=== PATIENT | female | born 1980 | race Caucasian/White ===

== ENCOUNTER 2020-06-28 10:16 | Day surgery (SDC) | payer OTHER, SELFPAY ==
--- NOTE | 2020-06-28 | POC_PTH ---
PATIENT: BRONWYN ESPINOZA LOC: [facility] – [place], [place] U#:[id number] AGE/SX: 39/F ROOM: RE06/28/[address]: Dr. Saulo Robertson MD : 1980 BED: DIS: 06/28/2020 SPEC #: [id number] RECD: 06/28/20 15:16 STATUS: ARIK FIDEL #: [id number] JADE: 06/28/20 00:[address]: Saulo Robertson DEPT: SURGICAL PATHOLOGY RECD BY: Craig Loyd Tissues: Product of conception, NOS Procedures: Surgery Specimen Level IV HEADER OPERATION: Suction dilation and curettage PRE-OP DIAGNOSIS: Missed TISSUE SUBMITTED: Products of conception MICROSCOPIC DIAGNOSIS Endometrium, curettage: Chorionic villi, decidualized stroma and trophoblastic cells consistent with products of conception. AM:esperanza 07/02/2020 MICROSCOPIC DESCRIPTION Slides are reviewed. GROSS DESCRIPTION Received in fixative is one container labeled with the patient's name and designated products of conception. The specimen consists of multiple irregular fragments of zavala soft tissue that in aggregate measure 9 x 7 x 1.5 cm. No parts are grossly recognized. 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 / AM:esperanza 07/01/20 TC:5 CPT: 58618
[2020-06-28 10:45] VITALS: BP 107/72; PULSE 68; RESP 16; TEMP 36.7; O2SAT 99; BMI 38.3
[2020-06-28] MEDS: Lactated Ringers 1,000 ML 100 ML IV (11:00)
--- NOTE | 2020-06-28 12:03 | HP.PCM_ITS ---
History and Physical Surgical History and Physical Age: 39 Date of : 1980 Lynette Wall, a 39 year old female 0 0 0 0 0, presents for Suction dilation and curettage on June 28, 2020 at 12:00. -- Luiz arrives for second opinion in office on missed , elects for suction dilation and curettage. She relates no bleeding or nausea at this time. MEDICATIONS HISTORY: Current medications prescribed by our practice are: 1. + DHA 28 mg iron- 975 mcg-200 mg combo pack, daily Patient is also takin. Maxalt 10 mg tablet, prn 2. propranolol ER 120 mg capsule,24 hr,extended release, daily ALLERGIES: No Known Drug Allergies Infections - Chicken pox Illnesses - Migraines Accidents - no injuries of consequence Hospitalizations - see surgery Review of Systems: GENERAL - Denies fever, or chills SKIN - Denies skin changes EYES - Denies visual changes EARS - Denies difficulty hearing NOSE - Denies nasal congestion or bleeding MOUTH - Denies sore throat or difficulty swallowing NECK - Denies pain or swelling RESPIRATORY - Denies shortness of breath or wheezing CARDIOVASCULAR - Denies palpitations or chest pain GASTROINTESTINAL - Denies nausea, vomiting, diarrhea, constipation GENITOURINARY - Denies dysuria, frequency of urination, incontinence of urine MUSCULOSKELETAL - Denies joint or muscle pain NEUROLOGICAL - Denies localized numbness or weakness PSYCHIATRIC - Denies depression or anxiety ENDOCRINE - Denies heat or cold intolerance, weight loss or gain HEMATO-IMMUNOLOGIC - Denies excesive bleeding with cuts SOCIAL HISTORY: Alcohol Use - socially Smoking - denies smoking Diet - no special diet Lifestyle - low stress lifestyle and Exercise - none Employer - [employer] 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 Tonsils, ? ; - 2. Bunionectomy, hammer toe, 2006 ; - PHYSICAL EXAM BP- 100/68 Sitting, Right arm, regular cuff Weight- 211.03286 lbs Height- 62.75 inch BMI:37.75 CONSTITUTIONAL - NAD, well nourished, and well developed SKIN - No rash, lesions, or ulcers HEENT - Normocephalic, PERRLA, EOMI NECK - No nodes, no nuchal rigidity and thyroid normal size and texture LYMPH NODES - Palpation of lymph nodes in neck and groins within normal limits ABDOMEN - Without hepatosplenomegaly, distention, masses, rebound, or guarding; normal bowel sounds; no hernias EXTREMITIES - No edema or calf tenderness NEUROLOGICAL - Cranial nerves II-XII grossly intact PSYCHIATRIC - A and O to time, place, person, mood and affect ASSESSMENT/PLAN: 1. Missed Pt for second opinion for [facility] with SAB. Pt with home pos UPT 05/17/20, 05/28/20 U/s at [facility] 6wk/1d no FHT, repeat u/s 06/07/20 same findings and dx with SAB. Pt elected for Expectant management with OB Pt recent called by OB doc and stated needed to have medical or surgical tx based on infection risk. U/s at this office with retroverted uterus, GS 30mm CRL 3mm no FHT. Based on hx Dx of SAB. Educated on Expectant management vs Medical vs Surgical. Educated on 8wk expectant management, can wait until this time with low risk. Also educated on risks with medical and surgical options. Pt does want future fertility, with age concerned. Educated on fertility with each procedure Pt elects for suction dilation and curettage. R/b/a discussed, pt states understand and wishes to proceed. All questions were answered and consent was signed.
[2020-06-28 13:04] VITALS: BP 107/72; BP 89/55; PULSE 56; RESP 14; TEMP 36.7; O2SAT 94
--- NOTE | 2020-06-28 13:04 | OP.PCM_ITS ---
Report of Operation Date of Procedure: 06/28/20 Pre-Operative Diagnosis: Missed Post-Operative Diagnosis: Missed Surgery/Procedure Performed:: Ultrasound-guided suction dilation curettage Description of Surgical Findings:: Surgeon: Saulo Robertson MD Anesthesia: MAC EBL: 25 cc Urine output: 250 cc IV fluids: 500 cc Complications: None Specimen: Products of conception Findings: Moderate amount of products of conception. Post procedure ultrasound with thin endometrial stripe. Good hemostasis Consent: Patient with missed elected for suction dilation and curettage. Patient understands the risk of the procedure include but are not limited to visceral vascular injury, prolonged hospitalization, blood loss and need for transfusion, reoperation. Patient educated on various options, declines options. Patient educated on genetic screening of products, risk benefits alternatives, patient declines genetic screening of products of conception. Patient stated understanding wished proceed. All questions were answered consent was signed. Procedure: Patient was brought back to the OR where MAC anesthesia was found be adequate. 200 mg of doxycycline IV were given for infection prophylaxis. Patient prepared and draped in a dorsolithotomy position with yellowfin stirrups. A weighted speculum is placed in the posterior aspect of the vagina. Cervical dilators were used to dilate cervix. 7 mm curved suction curette was used. Suction curette was used under direct visualization. Post procedure ultrasound with above findings. Good hemostasis noted. All counts correct x2. Patient tolerated procedure well was brought to recovery in stable condition. 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
--- NOTE | 2020-06-28 13:08 | DCINST_ITS ---
Discharge Diet: No Restrictions Discharge Activity: Return to Normal Activity, May Drive, May Shower May resume sexual activity in: 4-6 weeks Weight Bearing Status: Weight bearing as tolerated Call your doctor if your incision/area has: Continuous Slow Oozing, Foul Smelling Discharge Call your doctor if you observe: Fever of 101 or Higher, Shortness of breath, Chest pain Allergies/Adverse Reactions: Allergies No Known Allergies Allergy (Verified 06/25/20 10:07) Medications to take at Discharge Ascorbic Acid [Vitamin C] 500 mg PO DAILY 06/25/20 Vits [Prenatabs FA] 1 tab PO DAILY 06/25/20 Propranolol HCl [Propranolol HCl ER] 120 mg PO DAILY 06/25/20 Rizatriptan Benzoate [Rizatriptan] 10 mg PO PRN PRN 06/25/20 Primary Care Physician: CHRISTINE OCHOA [Other] Test Results: Test results from this visit will be discussed in further detail at your follow- up appointment, if applicable. Please Follow Up With: Saulo Robertson MD When: 2 weeks
[2020-06-28 13:09] VITALS: BP 107/72; BP 94/55; PULSE 55; RESP 14; O2SAT 98
[2020-06-28 13:12] VITALS: BP 107/72; BP 93/53; PULSE 55; RESP 14; O2SAT 99
[2020-06-28 13:24] VITALS: BP 103/88; BP 107/72; PULSE 59; RESP 16; TEMP 36.3; O2SAT 100
[2020-06-28 14:55] VITALS: BP 107/72; BP 111/51; PULSE 76; RESP 16; TEMP 36.6; O2SAT 98
== END 2020-06-28 15:15 | disposition home or self-care (01) ==
LOC: SDC 10:19 → AC 10:20
PROVIDERS: Referring Provider Obstetrics & Gynecology; Visit Provider Obstetrics & Gynecology
PROC: (CPT 59820; principal; 2020-06-28 11:50)
DX: O02.1 Missed abortion (principal); Z20.822 Contact with and (suspected) exposure to COVID-19
CPT/HCPCS: 59820; 86850; 86900; 86901; 87426; 88305; C9803; J7120; J2405

== ENCOUNTER 2021-05-01 16:12 | Outpatient (CLI) | payer OTHER, SELFPAY ==
[2021-05-01 16:49] LABS: Absolute Lymphocyte Count 2.64 X10^3/uL (0.83-4.51); Absolute Neutrophil Count 5.7 X10^3/uL (2.0-7.7); Basophil# 0.03 X10^3/uL; Basophil% 0.3 % (0-1); Eosinophil# 0.08 X10^3/uL; Eosinophils% 0.8 % (0-5); Hematocrit 37.5 % (37-47); Hemoglobin 12.9 g/dL (12.0-15.0); Lymphocyte # 2.64 X10^3/ul (0.83-4.51); Lymphocyte % 27.7 % (19-41); Mean Corp Hgb Conc 34.4 g/dL (32-36); Mean Corpuscular Hgb 31.6 pg (27.0-32.0); Mean Corpuscular Volume 91.9 fL (81-99); Mean Platelet Vol. 10.3 fl (6.2-12.0); Monocyte# 1.03 X10^3/uL; Monocyte% 10.8 % (0-10); NRBC Flagged by Analyzer 0 % (0-5); Neutrophil # 5.71 X10^3/uL (2.7-7.7); Neutrophil % 60.1 % (47-70); Platelet Count 297 K/mm3 (150-450); RBC Distribution Width CV 12.4 % (11.6-14.6); RBC Distribution Width SD 41.9 fl (35.1-43.9); Red Blood Count 4.08 M/mm3 (4.2-5.4); White Blood Count 9.5 K/mm3 (4.4-11.0)
[2021-05-02 09:43] LABS: HIV - WCH Non-Reactive (Nonreactive); Hepatitis B Surface Antigen Non-Reactive (Nonreactive); Hepatitis C Antibody Non-Reactive (Nonreactive); Rubella IgG Reactive (Nonreactive); Syphilis Antibodies Non-reactive
[2021-05-05 15:07] LABS: Chlamydia By Nucleic Acid AMP Negative (Negative)
[2021-05-05 16:08] LABS: Gonococcus By Nucleic Acid AMP Negative (Negative)
[2021-05-07 18:11] LABS: HPV APTIMA, High Risk Negative (Negative)
== END 2021-05-01 23:59 | disposition short-term general hospital (02) ==
LOC: WOBLAB 16:13
PROVIDERS: Visit Provider Obstetrics & Gynecology
DX: Z34.81 Encounter for supervision of other normal pregnancy, first trimester (principal); Z12.4 Encounter for screening for malignant neoplasm of cervix
CPT/HCPCS: 36415; 85025; 86703; 86762; 86780; 86803; 87086; 87088; 87340; 87491; 87591; 87624; 88175; G0145

== ENCOUNTER 2021-05-16 15:07 | Outpatient (CLI) | payer OTHER, SELFPAY | END 2021-05-16 23:59 | disposition short-term general hospital (02) | LOC: WOBLAB 15:09 | PROVIDERS: Visit Provider Obstetrics & Gynecology | DX: Z34.81 Encounter for supervision of other normal pregnancy, first trimester (principal) | CPT/HCPCS: 36415 ==

== ENCOUNTER → 2021-08-26 | Outpatient (CLI) | payer OTHER, SELFPAY ==
[2021-08-26 14:59] LABS: Hematocrit 33.8 % (37-47); Hemoglobin 11.5 g/dL (12.0-15.0); Mean Corpuscular Hgb 31.9 pg (27.0-32.0); Mean Corpuscular Volume 93.9 fL (81-99); Platelet Count 249 K/mm3 (150-450); RBC Distribution Width CV 13.3 % (11.6-14.6); RBC Distribution Width SD 45.6 fl (35.1-43.9); White Blood Count 10.3 K/mm3 (4.4-11.0)
[2021-08-26 15:09] LABS: Glucose Challenge Gest 1H 50g 148 mg/dL (70-140)
== END | disposition home or self-care (01) ==
PROVIDERS: Visit Provider Obstetrics & Gynecology
DX: Z34.82 Encounter for supervision of other normal pregnancy, second trimester (principal)
CPT/HCPCS: 36415; 82950; 85027

== ENCOUNTER → 2021-08-29 | Outpatient (CLI) | payer OTHER, SELFPAY ==
[2021-08-29 10:00] LABS: Glucose GTT-Gestation. Fasting 93 mg/dL (<105)
[2021-08-29 11:04] LABS: Glucose GTT-Gestational 1 Hr 206 mg/dL (<190)
[2021-08-29 12:48] LABS: Glucose GTT-Gestational 2 Hr 208 mg/dL (<165)
[2021-08-29 12:49] LABS: Glucose GTT-Gestational 3 Hr 90 L (<145)
== END | disposition home or self-care (01) ==
LOC: WOBLAB 08:48
PROVIDERS: Visit Provider Obstetrics & Gynecology
DX: O24.912 Unspecified diabetes mellitus in pregnancy, second trimester (principal); Z3A.00 Weeks of gestation of pregnancy not specified
CPT/HCPCS: 36415; 82951; 82952

== ENCOUNTER → 2021-10-21 | Outpatient (CLI) | payer OTHER, SELFPAY ==
[2021-10-21 18:20] LABS: ALB/GLOB Ratio 0.8 RATIO (0.9-2.4); AST(SGOT) 16 U/L (15-37); Alanine Aminotransfer ALT/SGPT 20 U/L (13-56); Albumin, Serum 2.7 g/dL (3.2-5.0); Alkaline Phosphatase 100 U/L (45-117); Anion Gap 9 (5-15); BUN 13 mg/dL (7-18); BUN/Creat Ratio 25.3 RATIO (10-20); Calcium,Total 9.6 mg/dL (8.5-10.1); Chloride 109 mmol/L (98-107); Creatinine, Serum 0.51 mg/dL (0.55-1.02); EST Glomerular Filtration Rate 140 mL/min (>60); Est Glom Filt Rate - Afr Amer 170 mL/min (>60); Globulin 3.4 g/dL (2.2-4.2); Glucose 93 mg/dL (74-106); Potassium 3.8 mmol/L (3.5-5.1); Protein, Total 6.1 g/dL (6.4-8.2); Sodium Level 139 mmol/L (136-145)
== END | disposition home or self-care (01) ==
PROVIDERS: Visit Provider Obstetrics & Gynecology
DX: Z34.83 Encounter for supervision of other normal pregnancy, third trimester (principal)
CPT/HCPCS: 36415; 80053

== ENCOUNTER 2021-11-04 14:15 | Outpatient (CLI) | payer OTHER, SELFPAY ==
[2021-11-04 14:33] VITALS: BMI 41.8
[2021-11-04 14:59] VITALS: PULSE 69; TEMP 36.3; O2SAT 96
[2021-11-04 15:01] VITALS: BP 111/62; PULSE 68
--- NOTE | 2021-11-05 08:33 | OB.TRI.NOTE ---
HPI - General General Date of Admission: 11/04/21 Date of Service: 11/04/21 Chief Complaint: decreased movement HPI Narrative BRONWYN ESPINOZA, is a 40 F G1 who presents at 35 weeks with c/o decreased movement. PFSH PFSH Home Medications ascorbic acid (vitamin C) 500 mg capsule,extended release 500 mg PO DAILY 06/25/20 [History Last Taken 11/03/21 17:00] vits,calcium no.78-iron fumarate-folic acid 29 mg-1 mg tablet 1 tab PO DAILY 06/25/20 [History Last Taken 11/04/21 11:00] propranolol 120 mg capsule,24 hr,extended release 120 mg PO DAILY migraines 06/25/20 [History Last Taken 11/04/21 11:00] aspirin 81 mg capsule 81 mg PO DAILY covid in 11/04/21 [History Last Taken 11/04/21 11:00] cholecalciferol (vitamin D3) 50 mcg (2,000 unit) capsule (Vitamin D3) 50 mcg PO DAILY 11/04/21 [History Last Taken 11/04/21 11:00] zinc 50 mg capsule 50 mg PO DAILY 11/04/21 [History Last Taken 11/04/21 11:00] Allergy/AdvReac Type Severity Reaction Status Date / Time No Known Allergies Allergy Verified 11/04/21 14:49 Social History Smoking Status: Never smoker NST FHR Rate Baby A Baseline: 130 Variability:: Moderate Accelerations:: 15 x 15 Decelerations:: None NST Reactive:: Yes FHR Category:: Category I Uterine Activity:: 0/10 Assessment & Plan (1) 35 weeks gestation of : (2) Decreased movement: PLAN: NST reactive, Cat I dc home
== END 2021-11-04 15:50 | disposition home or self-care (01) ==
LOC: WPOUT 14:21 → WP 14:21
PROVIDERS: Referring Provider Obstetrics & Gynecology; Visit Provider Obstetrics & Gynecology
DX: O36.8130 Decreased fetal movements, third trimester, not applicable or unspecified (principal); Z79.82 Long term (current) use of aspirin; Z3A.35 35 weeks gestation of pregnancy
CPT/HCPCS: 59025; 59050; 99218; G0378

== ENCOUNTER → 2021-11-11 | Outpatient (CLI) | payer OTHER, SELFPAY | END | disposition home or self-care (01) | LOC: LABSPEC 11-13 13:05 | PROVIDERS: Visit Provider Obstetrics & Gynecology | DX: Z36.85 Encounter for antenatal screening for Streptococcus B (principal) | CPT/HCPCS: 87081 ==

== ENCOUNTER 2021-11-20 19:05 | Inpatient (IN) | payer OTHER, SELFPAY ==
[2021-11-20 19:40] VITALS: TEMP 36.4
[2021-11-20] MEDS: Lactated Ringers 1,000 ML 50 ML IV (19:48)
[2021-11-20 19:50] VITALS: BMI 42.2
[2021-11-20 19:58] VITALS: PULSE 75; O2SAT 97
[2021-11-20 19:59] VITALS: BP 116/58; PULSE 75
[2021-11-20 20:04] LABS: Absolute Lymphocyte Count 1.91 X10^3/uL (0.83-4.51); Absolute Neutrophil Count 6.1 X10^3/uL (2.0-7.7); Basophil# 0.01 X10^3/uL; Basophil% 0.1 % (0-1); Eosinophil# 0.04 X10^3/uL; Eosinophils% 0.4 % (0-5); Hematocrit 33.8 % (37-47); Hemoglobin 11.4 g/dL (12.0-15.0); Lymphocyte # 1.91 X10^3/ul (0.83-4.51); Lymphocyte % 21.3 % (19-41); Mean Corp Hgb Conc 33.7 g/dL (32-36); Mean Corpuscular Hgb 32.3 pg (27.0-32.0); Mean Corpuscular Volume 95.8 fL (81-99); Mean Platelet Vol. 11.8 fl (6.2-12.0); Monocyte# 0.86 X10^3/uL; Monocyte% 9.6 % (0-10); NRBC Flagged by Analyzer 0 % (0-5); Neutrophil # 6.11 X10^3/uL (2.7-7.7); Neutrophil % 68.2 % (47-70); Platelet Count 208 K/mm3 (150-450); RBC Distribution Width CV 13.6 % (11.6-14.6); RBC Distribution Width SD 46.9 fl (35.1-43.9); Red Blood Count 3.53 M/mm3 (4.2-5.4)
--- NOTE | 2021-11-20 20:26 | PCM.HP.BLA ---
History and Physical Date of Admission: 11/20/21 Chief complaint: Induction of labor cholestasis History present illness: 41-year-old G2, P0 at 37 weeks and 2 days with ROXY 12/09/2021 arrives for induction of labor cholestasis. Denies headache, vision change, chest pain, shortness of breath, nausea vomit, right upper quadrant pain. Patient states good movement. is complicated by AMA (NIPT within normal limits), cholestasis, GDM A1 Obstetric history: G1: SAB G2: Current Past medical history: GDM A1, cholestasis, migraines Medications: ASA, vitamin, propranolol, ursodiol Past surgical history: Allergies: No known drug allergies Family history: Denies history DVT or PE Social history: Denies smoking, alcohol use, drug use Review of systems: Besides above pertinent positives a full review of systems was performed and found to be negative Physical exam: Blood pressures 116/58 pulse 75 General: Normal-appearing no acute distress none HEENT: Normocephalic/atraumatic no cervical of adenopathy Cardiac/respiratory: No successor muscles, nonlabored breathing Abdomen: Soft, nontender, gravid Extremities: No peripheral edema normal peripheral pulses Psych: Normal affect normal demeanor nonpressured speech Labs: White blood cell count 9.0 hemoglobin 11.4 hematocrit 33.8 platelets 208 Assessment plan: 41-year-old G2, P0 at 37 weeks and 2 days for induction of labor with cholestasis Admit labor and delivery CEFM GBS negative Cytotec induction GDM A1: We will continue to monitor blood sugars and treat appropriately Anesthesia see
[2021-11-20 20:31] LABS: Bedside Glucose 98 mg/dL (74-106)
[2021-11-20] MEDS: miSOPROStol 25 MCG TABLET VAGINAL (20:35)
[2021-11-20 20:48] LABS: ALB/GLOB Ratio 0.8 RATIO (0.9-2.4); AST(SGOT) 19 U/L (15-37); Alanine Aminotransfer ALT/SGPT 19 U/L (13-56); Albumin, Serum 2.7 g/dL (3.2-5.0); Alkaline Phosphatase 120 U/L (45-117); Anion Gap 8 (5-15); BUN 12 mg/dL (7-18); BUN/Creat Ratio 17.2 RATIO (10-20); Chloride 108 mmol/L (98-107); EST Glomerular Filtration Rate 99 mL/min (>60); Est Glom Filt Rate - Afr Amer 119 mL/min (>60); Estimated Creatinine Clearance 87.49 ml/min; Globulin 3.4 g/dL (2.2-4.2); Glucose 93 mg/dL (74-106); Potassium 3.7 mmol/L (3.5-5.1); Protein, Total 6.1 g/dL (6.4-8.2); Sodium Level 138 mmol/L (136-145)
[2021-11-20 21:56] LABS: Bedside Glucose 101 mg/dL (74-106)
[2021-11-20] MEDS: Acetaminophen 500 MG Tablet PO (22:39)
[2021-11-20 22:46] VITALS: TEMP 36.3; O2SAT 98
[2021-11-20 22:47] VITALS: BP 117/57; PULSE 60
[2021-11-20 23:44] VITALS: PULSE 61; O2SAT 98
[2021-11-21] VITALS (41 sets, daily range): BP systolic 109–168; BP diastolic 57–76; PULSE 47–104; RESP 16; TEMP 36.3–37.2; O2SAT 95–100
[2021-11-21] MEDS: miSOPROStol 25 MCG TABLET VAGINAL ×3 (00:51→13:53)
[2021-11-21 01:25] LABS: Bedside Glucose 67 mg/dL (74-106)
[2021-11-21] MEDS: Acetaminophen 500 MG Tablet PO ×2 (05:18→23:34)
[2021-11-21] MEDS: LACTATED RINGERS 500 ML 999 ML IV ×3 (05:24→20:37)
[2021-11-21 06:06] LABS: Bedside Glucose 73 mg/dL (74-106)
--- NOTE | 2021-11-21 07:11 | PN.OBGYN_ITS ---
Subjective Subjective No overnight complaints Objective Data Objective Data Vital Signs: Vital Signs Temp Pulse BP Pulse Ox 99.0 F 60 138/67 H 98 11/21/21 05:05 11/21/21 05:05 11/21/21 05:04 11/21/21 05:05 Weight: 238 lb 3.2 oz Body Mass Index (BMI) 42.2 Intake & Output: Intake and Output for Last 24 Hours 11/19/21 11/20/21 11/21/21 23:59 23:59 23:59 Intake Total 980 / 980 Balance 980 / 980 Lab / Micro Data Result Diagrams: 11/20/21 19:45 11/20/21 19:45 Labs: Laboratory Results - last 24 hr 11/20/21 19:45: WBC 9.0, RBC 3.53 L, Hgb 11.4 L, Hct 33.8 L, MCV 95.8, MCH 32.3 H, MCHC 33.7, RDW Std Deviation 46.9 H, RDW Coeff of [place] 13.6, Plt Count 208, MPV 11.8, Immature Gran % (Auto) 0.400, Neut % (Auto) 68.2, Lymph % (Auto) 21.3, Gregory % (Auto) 9.6, Eos % (Auto) 0.4, Baso % (Auto) 0.1, Absolute Neuts (auto) 6.1, Absolute Lymphs (auto) 1.91, Nucleated RBC % 0 11/20/21 19:45: Blood Type O POSITIVE, Antibody Screen NEGATIVE 11/20/21 19:45: Sodium 138, Potassium 3.7, Chloride 108 H, Carbon Dioxide 22.0, Anion Gap 8, BUN 12, Creatinine 0.70, Estim Creat Clear Calc 87.49, Est GFR (MDRD) Af Amer 119, Est GFR (MDRD) Non-Af 99, BUN/Creatinine Ratio 17.2, Glucose 93, Calcium 9.0, Total Bilirubin 0.30, AST 19, ALT 19, Alkaline Phosphatase 120 H, Total Protein 6.1 L, Albumin 2.7 L, Globulin 3.4, Albumin/Globulin Ratio 0.8 L 11/20/21 20:08: POC Glucose 98 11/20/21 21:14: POC Glucose 101 11/21/21 00:58: POC Glucose 67 L 08/05/22 05:13: POC Glucose 73 L Physical Exam Const alert, oriented x3, no apparent distress, average body habitus, healthy appearing and well nourished HEENT normocephalic Neck full ROM Resp normal respiratory effort, no retractions and no use of accessory muscles Extremity normal to inspection, full ROM and no clubbing, cyanosis or edema Neuro moves all extremities and no focal motor deficits Psych mental status grossly normal, affect normal, speech normal and activity/motor behavior normal Assessment & Plan (1) : PLAN: Patient seen and examined. Cytotec induction. Will take break this morning and restart early afternoon. Continue Cytotec
[2021-11-21 09:00] LABS: Bedside Glucose 81 mg/dL (74-106)
[2021-11-21] MEDS: Propranolol LA 60 MG Capsule 120 MG PO (11:02)
[2021-11-21 11:25] LABS: Bedside Glucose 112 mg/dL (74-106)
[2021-11-21] MEDS: Lactated Ringers 1,000 ML 50 ML IV (13:53)
[2021-11-21 15:20] LABS: Bedside Glucose 81 mg/dL (74-106)
--- NOTE | 2021-11-21 18:00 | PCM.PN.OB ---
Subjective Subjective Starting to feel cramping with contractions Objective Data Objective Data Vital Signs: Vital Signs Temp Pulse BP Pulse Ox 98.1 F 50 L 136/64 H 97 11/21/21 15:01 11/21/21 17:07 11/21/21 17:07 11/21/21 15:01 Weight: 238 lb 3.2 oz Body Mass Index (BMI) 42.2 Intake & Output: Intake and Output for Last 24 Hours 11/19/21 11/20/21 11/21/21 23:59 23:59 23:59 Intake Total 1378.33 / 1378.33 Balance 1378.33 / 1378.33 Lab / Micro Data Result Diagrams: 11/20/21 19:45 11/20/21 19:45 Labs: Laboratory Results - last 24 hr 11/20/21 19:45: WBC 9.0, RBC 3.53 L, Hgb 11.4 L, Hct 33.8 L, MCV 95.8, MCH 32.3 H, MCHC 33.7, RDW Std Deviation 46.9 H, RDW Coeff of Mary Anne 13.6, Plt Count 208, MPV 11.8, Immature Gran % (Auto) 0.400, Neut % (Auto) 68.2, Lymph % (Auto) 21.3, [place] % (Auto) 9.6, Eos % (Auto) 0.4, Baso % (Auto) 0.1, Absolute Neuts (auto) 6.1, Absolute Lymphs (auto) 1.91, Nucleated RBC % 0 11/20/21 19:45: Blood Type O POSITIVE, Antibody Screen NEGATIVE 11/20/21 19:45: Sodium 138, Potassium 3.7, Chloride 108 H, Carbon Dioxide 22.0, Anion Gap 8, BUN 12, Creatinine 0.70, Estim Creat Clear Calc 87.49, Est GFR (MDRD) Af Amer 119, Est GFR (MDRD) Non-Af 99, BUN/Creatinine Ratio 17.2, Glucose 93, Calcium 9.0, Total Bilirubin 0.30, AST 19, ALT 19, Alkaline Phosphatase 120 H, Total Protein 6.1 L, Albumin 2.7 L, Globulin 3.4, Albumin/Globulin Ratio 0.8 L 11/20/21 20:08: POC Glucose 98 11/20/21 21:14: POC Glucose 101 11/21/21 00:58: POC Glucose 67 L 11/21/21 05:13: POC Glucose 73 L 11/21/21 08:38: POC Glucose 81 11/21/21 11:04: POC Glucose 112 H 11/21/21 15:00: POC Glucose 81 Physical Exam Const alert, oriented x3, no apparent distress, average body habitus, healthy appearing and well nourished HEENT normocephalic and moist oral mucous membranes Eyes PERRL Neck full ROM Resp normal respiratory effort, no retractions and no use of accessory muscles Extremity normal to inspection, full ROM and no clubbing, cyanosis or edema Neuro moves all extremities, no focal motor deficits and no sensory deficits noted Assessment & Plan (1) : PLAN: Patient seen and examined. Certainly feel cramping with contractions. Discussed options for epidural. Patient considering. Discussed AROM now versus Cytotec and Pitocin. Risk benefits alternatives. Patient elects for last dose of Cytotec now and will transition to Pitocin.
[2021-11-21] MEDS: Ondansetron 4 MG/2 ML Vial IV (18:30)
[2021-11-21 19:21] LABS: Bedside Glucose 82 mg/dL (74-106)
[2021-11-21] MEDS: fentaNYL-bupivacaine (epidural) 100 ML BAG EPIDURAL (20:15)
[2021-11-21] MEDS: Amnioinfusion- 0.9% NS 1,000 ML IV.SOLN. 1000 ML INTRA-UTER (22:40)
[2021-11-21] MEDS: 0.9% Saline Lock 10 ML Syringe IV (23:39)
[2021-11-21] MEDS: Lactated Ringers 1,000 ML 200 ML IV (23:40)
[2021-11-21] MEDS: Terbutaline 1 MG/ML Vial 0.25 MG SC (23:57)
[2021-11-22] VITALS (22 sets, daily range): BP systolic 91–131; BP diastolic 43–90; PULSE 55–78; RESP 16–18; TEMP 36.1–36.8; O2SAT 95–100
[2021-11-22 00:06] LABS: Bedside Glucose 85 mg/dL (74-106)
[2021-11-22] MEDS: Sodium Citrate/Citric Acid 30 ML UDC PO (00:08)
--- NOTE | 2021-11-22 00:15 | PCM.PN.OB ---
Subjective Subjective Comfortable with epidural Objective Data Objective Data Vital Signs: Vital Signs Temp Pulse BP Pulse Ox 97.3 F L 51 L 109/58 L 99 11/21/21 23:27 11/21/21 23:28 11/21/21 23:28 11/21/21 23:28 Weight: 238 lb 3.2 oz Body Mass Index (BMI) 42.2 Intake & Output: Intake and Output for Last 24 Hours 11/20/21 11/21/21 11/22/21 23:59 23:59 23:59 Intake Total 3378.33 / 3378.33 Balance 3378.33 / 3378.33 Lab / Micro Data Result Diagrams: 11/20/21 19:45 11/20/21 19:45 Labs: Laboratory Results - last 24 hr 11/21/21 00:58: POC Glucose 67 L 11/21/21 05:13: POC Glucose 73 L 11/21/21 08:38: POC Glucose 81 11/21/21 11:04: POC Glucose 112 H 11/21/21 15:00: POC Glucose 81 11/21/21 18:55: POC Glucose 82 11/21/21 23:26: POC Glucose 85 Physical Exam Const alert, oriented x3, no apparent distress, average body habitus, healthy appearing and well nourished HEENT normocephalic and moist oral mucous membranes Eyes PERRL Neck full ROM Resp normal respiratory effort, no retractions and no use of accessory muscles Extremity normal to inspection, full ROM and no clubbing, cyanosis or edema Neuro moves all extremities and no focal motor deficits Psych mental status grossly normal, affect normal, speech normal and activity/motor behavior normal Assessment & Plan (1) : PLAN: Patient seen and examined. Patient with SROM and with recurrent lates and variables, amnioinfusion started, position changes, O2 with no resolution of decelerations. Cervical exam remains unchanged. Remote from delivery. Educated patient on findings. Discussed primary section for nonreassuring heart tones vs expectant management risk benefits alternatives. Patient states understanding and wished to proceed with primary section for nonreassuring heart tones. Patient understands risk of the procedure include but are not limited to visceral vascular injury, prolonged hospitalization, blood loss need for transfusion, reoperation. Patient states understanding wish to proceed. All questions were answered and consent was signed. Terbutaline 0.25 mg IM now. For Ancef 2 g and 500 mg of azithromycin. For primary section now
[2021-11-22] MEDS: Cefazolin 2 GM in 0.9% Normal Saline 100 ML IV (00:19)
--- NOTE | 2021-11-22 01:09 | OP.PCM_ITS ---
Details Operative Information Date of Procedure: 11/22/21 Pre-Operative Diagnosis: Term, nonreassuring heart tones Post-Operative Diagnosis: Term, nonreassuring heart tones Findings Description of Procedure: Procedure: Primary low transverse section Via Pfannenstiel incision Surgeon: Saulo Robertson MD Anesthesia: Epidural EBL: 800 cc IV fluids: 1000 cc Urine output: Minimal Complications: None Specimen: None Findings: Male infant in vertex position Apgars 7/9. Normal uterus, tubes, and ovaries. Consent: Patient arrived for induction of labor for cholestasis then with nonreassuring heart tones elects for primary low-transverse section Via Pfannenstiel incision. Patient understands risk of the procedure include but are not limited to visceral or vascular injury, prolonged hospitalization, blood loss and need for transfusion, reoperation. Patient state understanding and wished to proceed. All questions were answered and consent was signed. Procedure: Patient was brought back to the OR where epidural anesthesia was found to be adequate. 2 g of Ancef and 500 mg of azithromycin were given for infection prophylaxis. Patient was prepared and draped in dorsal supine position with leftward tilt. Pfannenstiel incision was made at the skin with a scalpel. The incision was carried down to the fascia with a scalpel. The fascia was excised and extended laterally. The inferior aspect of the fascia was grasped and the underlying rectus and pyramidalis muscle were dissected off sharply with Fair scissors. In a similar fashion the superior aspect of the fascia was grasped with a clamp and the underlying rectus muscle dissected off sharply. Rectus muscle was dissected at the midline down to the level of pubic symphysis. Preperitoneal fatty tissue was noted and peritoneum was entered sharply. Peritoneum was extended superiorly and inferiorly with good visualization of bladder. Bladder blade was inserted and vesicouterine peritoneum was identi fied. Low transverse hysterotomy was made. Hand was placed in the incision and gentle fundal pressure was applied once the head was brought into the incision and the bladder blade was removed. Head and shoulders were delivered with ease. Cord was cut and clamped. Baby is handed off to nursing. Placenta was delivered via cord traction and fundal massage. IV oxytocin was initiated in order to facilitate uterine contractions. Uterus was exteriorized and wiped out with dry laparotomy sponge in order to remove remaining placental membranes. Uterus was closed in continuous running fashion. [id number] sutures were used for hemostasis. Uterus placed placed back in the abdominal cavity and [place] was placed over the hysterotomy. Good hemostasis was noted. Fascia was closed in continuous running fashion. Subcutaneous irrigation was performed. Good hemostasis was noted. Skin was closed in a subcuticular fashion. All counts were correct x2. Patient tolerated procedure well and was brought to recovery in stable condition.
[2021-11-22] MEDS: Oxytocin 30 units/NS 500 ml 30 UNITS/500 ML IV.SOLN 167 UNITS IV (01:28)
[2021-11-22] MEDS: Ketorolac 30 MG/ML Syringe IV ×4 (02:39→20:46)
[2021-11-22] MEDS: 0.9% Saline Lock 10 ML Syringe IV ×3 (02:39→20:46)
[2021-11-22 05:31] LABS: Bedside Glucose 82 mg/dL (74-106)
[2021-11-22] MEDS: Acetaminophen 500 MG Tablet 1000 MG PO ×3 (05:47→18:43)
[2021-11-22] MEDS: Lactated Ringers 1,000 ML 100 ML IV (07:18)
[2021-11-22] MEDS: Propranolol LA 60 MG Capsule 120 MG PO (10:24)
[2021-11-22] MEDS: Senna/Docusate Sodium 1 Tablet PO (10:25)
--- NOTE | 2021-11-22 12:35 | PCM.PN.OB ---
Subjective Subjective No complaints. Pain well controlled Objective Data Objective Data Vital Signs: Vital Signs Temp Pulse Resp BP Pulse Ox O2 Del Method 97.2 F L 78 16 116/52 L 99 Room Air 11/22/21 09:48 11/22/21 09:48 11/22/21 09:48 11/22/21 09:48 11/22/21 09:48 11/22/21 09:48 Oxygen Delivery Method Room Air Weight: 238 lb 3.2 oz Body Mass Index (BMI) 42.2 Intake & Output: Intake and Output for Last 24 Hours 11/20/21 11/21/21 11/22/21 23:59 23:59 23:59 Intake Total 3618.33 / 3618.33 1240 / 1240 Output Total 1000 / 1000 750 / 750 Balance 2618.33 / 2618.33 490 / 490 Lab / Micro Data Result Diagrams: 11/20/21 19:45 11/20/21 19:45 Labs: Laboratory Results - last 24 hr 11/21/21 15:00: POC Glucose 81 11/21/21 18:55: POC Glucose 82 11/21/21 23:26: POC Glucose 85 11/22/21 02:47: POC Glucose 82 Physical Exam Const alert, oriented x3, no apparent distress, average body habitus, healthy appearing and well nourished HEENT normocephalic Eyes PERRL Resp normal respiratory effort, no retractions and no use of accessory muscles Extremity normal to inspection, full ROM and no clubbing, cyanosis or edema Neuro moves all extremities and no focal motor deficits Psych mental status grossly normal, affect normal, speech normal and activity/motor behavior normal Assessment & Plan (1) Delivery by section: PLAN: Postop day 0 status post primary section for nonreassuring heart tones. Breast-feeding. Pain well controlled.
[2021-11-22] MEDS: Enoxaparin 40 MG/0.4 ML Syringe SC (15:08)
[2021-11-23] MEDS: Acetaminophen 500 MG Tablet 1000 MG PO ×4 (00:43→19:03)
[2021-11-23 00:45] VITALS: BP 103/54; PULSE 72; RESP 14; TEMP 36.4; O2SAT 98
[2021-11-23] MEDS: Ibuprofen 600 MG Tablet PO ×4 (02:35→20:23)
[2021-11-23 04:06] VITALS: BP 113/54; PULSE 63; RESP 14; TEMP 36.2; O2SAT 95
[2021-11-23 06:29] LABS: Hematocrit 31.8 % (37-47); Hemoglobin 10.4 g/dL (12.0-15.0); Mean Corp Hgb Conc 32.7 g/dL (32-36); Mean Corpuscular Hgb 32.2 pg (27.0-32.0); Mean Corpuscular Volume 98.5 fL (81-99); Mean Platelet Vol. 11.4 fl (6.2-12.0); Platelet Count 172 K/mm3 (150-450); RBC Distribution Width CV 13.8 % (11.6-14.6); RBC Distribution Width SD 48.3 fl (35.1-43.9); Red Blood Count 3.23 M/mm3 (4.2-5.4); White Blood Count 11.5 K/mm3 (4.4-11.0)
[2021-11-23 08:16] VITALS: BP 101/55; PULSE 54; RESP 16; TEMP 36.6; O2SAT 97
--- NOTE | 2021-11-23 09:54 | PCM.PN.OB ---
Subjective Subjective No overnight complaints. Pain well controlled. Objective Data Objective Data Vital Signs: Vital Signs Temp Pulse Resp BP Pulse Ox O2 Del Method 97.9 F 54 L 16 101/55 L 97 Room Air 11/23/21 08:16 11/23/21 08:16 11/23/21 08:16 11/23/21 08:16 11/23/21 08:16 11/23/21 08:16 Oxygen Delivery Method Room Air Weight: 238 lb 3.2 oz Body Mass Index (BMI) 42.2 Intake & Output: Intake and Output for Last 24 Hours 11/21/21 11/22/21 11/23/21 23:59 23:59 23:59 Intake Total 3618.33 / 3618.33 1761.67 / 1761.67 Output Total 1000 / 1000 2450 / 2450 Balance 2618.33 / 2618.33 -688.33 / -688.33 Lab / Micro Data Result Diagrams: 11/23/21 06:20 11/20/21 19:45 Labs: Laboratory Results - last 24 hr 11/23/21 06:20: WBC 11.5 H, RBC 3.23 L, Hgb 10.4 L, Hct 31.8 L, MCV 98.5, MCH 32.2 H, MCHC 32.7, RDW Std Deviation 48.3 H, RDW Coeff of Mary Anne 13.8, Plt Count 172, MPV 11.4 Physical Exam Const alert, oriented x3, no apparent distress, average body habitus, healthy appearing and well nourished HEENT normocephalic Eyes PERRL Neck full ROM Resp normal respiratory effort, no retractions and no use of accessory muscles Extremity normal to inspection, full ROM and no clubbing, cyanosis or edema Neuro moves all extremities, no focal motor deficits and no sensory deficits noted Psych mental status grossly normal, affect normal, speech normal and activity/motor behavior normal Assessment & Plan (1) Delivery by section: PLAN: Postop day 1 status post primary section for nonreassuring heart tones. Breast-feeding. Pain well controlled. 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
[2021-11-23] MEDS: Propranolol LA 60 MG Capsule 120 MG PO (10:18)
[2021-11-23] MEDS: Enoxaparin 40 MG/0.4 ML Syringe SC (10:19)
[2021-11-23] MEDS: Senna/Docusate Sodium 1 Tablet PO (10:19)
[2021-11-23 14:09] VITALS: BP 127/55; PULSE 70; RESP 18; TEMP 36.1; O2SAT 97
[2021-11-23 21:30] VITALS: BP 128/55; PULSE 77; RESP 18; TEMP 36.3; O2SAT 97
[2021-11-24] MEDS: Acetaminophen 500 MG Tablet 1000 MG PO ×4 (01:18→18:07)
[2021-11-24] MEDS: Ibuprofen 600 MG Tablet PO ×4 (02:33→21:16)
[2021-11-24 02:34] VITALS: BP 124/57; PULSE 64; RESP 16; TEMP 36.1; O2SAT 100
--- NOTE | 2021-11-24 07:25 | PCM.PN.OB ---
Subjective Subjective No overnight complaints. Pain well controlled Objective Data Objective Data Vital Signs: Vital Signs Temp Pulse Resp BP Pulse Ox O2 Del Method 97.0 F L 64 16 124/57 H 100 Room Air 11/24/21 02:34 11/24/21 02:34 11/24/21 02:34 11/24/21 02:34 11/24/21 02:34 11/24/21 02:34 Oxygen Delivery Method Room Air Weight: 238 lb 3.2 oz Body Mass Index (BMI) 42.2 Intake & Output: Intake and Output for Last 24 Hours 11/22/21 11/23/21 11/24/21 23:59 23:59 23:59 Intake Total 1761.67 / 1761.67 Output Total 2450 / 2450 Balance -688.33 / -688.33 Lab / Micro Data Result Diagrams: 11/23/21 06:20 11/20/21 19:45 Physical Exam Const alert, oriented x3, no apparent distress, average body habitus, healthy appearing and well nourished HEENT normocephalic Eyes PERRL Resp normal respiratory effort, no retractions and no use of accessory muscles Extremity normal to inspection, full ROM and no clubbing, cyanosis or edema Neuro moves all extremities and no focal motor deficits Psych mental status grossly normal, affect normal and speech normal Assessment & Plan (1) Delivery by section: PLAN: POD#2 s/p P C/S for NRFHT. Pain well controlled. . GDMA1 for 2hr PP. Likely home tomorrow
[2021-11-24 07:50] VITALS: BP 137/66; PULSE 69; RESP 18; TEMP 36.1
[2021-11-24] MEDS: Enoxaparin 40 MG/0.4 ML Syringe SC (09:16)
[2021-11-24] MEDS: Senna/Docusate Sodium 1 Tablet PO (09:16)
[2021-11-24] MEDS: Propranolol LA 60 MG Capsule 120 MG PO (10:34)
[2021-11-24 15:00] VITALS: BP 118/65; PULSE 76; RESP 18; TEMP 36.6
[2021-11-24 20:16] VITALS: BP 135/73; PULSE 72; RESP 16; TEMP 36.1; O2SAT 100
[2021-11-25] MEDS: Acetaminophen 500 MG Tablet 1000 MG PO ×4 (00:42→18:47)
[2021-11-25 02:33] VITALS: BP 117/59; PULSE 68; RESP 16; TEMP 36.7; O2SAT 98
[2021-11-25] MEDS: Ibuprofen 600 MG Tablet PO ×3 (02:33→14:04)
--- NOTE | 2021-11-25 07:10 | PCM.DC.BLA ---
Discharge Summary Date of Admission: 11/20/21 Date of Discharge: 11/25/21 Summary: Patient arrived on 11/20/2021 for induction of labor with suspected cholestasis. Induction of labor pursued, patient with SROM and then with nonreassuring heart tones. Had primary section for nonreassuring heart tones on 11/22/2021. Routine recovery. Discharge home on 11/25/2021 Meaningful Use Info Meaningful Use Diagnoses (Choose all that apply): None applicable Discharge Plan Admission Admit Date/Time: 11/20/21 19:05 Primary Reason for Your Visit: Induction of labor Attending Provider: Saulo Robertson Primary Care Provider: CHRISTINE OCHOA Instructions Additional Instructions / Restrictions: Regular diet. No tub baths for 2 weeks. Okay to shower. No intercourse for 4 to 6 weeks. No heavy lifting over 25 pounds for 2 to 3 weeks. Follow-up 2 weeks postoperatively Discharge Orders/Prescriptions Prescriptions: New oxycodone 5 mg Tablet 5 mg PO Q6H PRN PRN (Reason: Pain Score 7-10) 4 Days Qty: 16 0RF Continued ascorbic acid (vitamin C) 500 MG capsule, extended release 500 mg PO DAILY propranolol 120 MG capsule,extended release 24 hr 120 mg PO DAILY vit,[id number] 1 TABLET tablet 1 tab PO DAILY zinc 50 mg Capsule 50 mg PO DAILY cholecalciferol (vitamin D3) [Vitamin D3] 50 mcg (2,000 unit) Capsule 50 mcg PO DAILY aspirin 81 mg Capsule 81 mg PO DAILY Discontinued ursodiol 300 mg PO.IVFORM TID Referrals / Follow Up: CHRISTINE OCHOA [Other] Disposition Disposition (needs filled in before D/C Order can be placed): Home, Self Care
--- NOTE | 2021-11-25 07:11 | PN.OBGYN_ITS ---
Subjective Subjective No overnight complaints. Pain well controlled Objective Data Objective Data Vital Signs: Vital Signs Temp Pulse Resp BP Pulse Ox O2 Del Method 98.0 F 68 16 117/59 L 98 Room Air 11/25/21 02:33 11/25/21 02:33 11/25/21 02:33 11/25/21 02:33 11/25/21 02:33 11/25/21 02:33 Oxygen Delivery Method Room Air Weight: 238 lb 3.2 oz Body Mass Index (BMI) 42.2 Lab / Micro Data Result Diagrams: 11/23/21 06:20 11/20/21 19:45 Physical Exam Const alert, oriented x3, no apparent distress, average body habitus, healthy ap pearing and well nourished HEENT normocephalic and moist oral mucous membranes Eyes PERRL Neck full ROM Resp normal respiratory effort, no retractions and no use of accessory muscles Extremity normal to inspection, full ROM and no clubbing, cyanosis or edema Neuro moves all extremities and no focal motor deficits Psych mental status grossly normal, affect normal and speech normal Assessment & Plan (1) Delivery by section: PLAN: Postop day 3 status post primary section for nonreassuring heart tones. Breast-feeding. Pain well controlled. Okay to discharge home today
[2021-11-25 07:58] VITALS: BP 121/65; PULSE 77; RESP 16; TEMP 36.4; O2SAT 97
[2021-11-25] MEDS: Enoxaparin 40 MG/0.4 ML Syringe SC (10:53)
[2021-11-25] MEDS: Senna/Docusate Sodium 1 Tablet PO (10:53)
[2021-11-25] MEDS: Propranolol LA 60 MG Capsule 120 MG PO (10:54)
[2021-11-25 14:06] VITALS: BP 123/69; PULSE 77; RESP 16; TEMP 36.3; O2SAT 98
== END 2021-11-25 19:00 | disposition home or self-care (01) | DRG 786 ==
PROVIDERS: Admitting Provider Obstetrics & Gynecology; Visit Provider Obstetrics & Gynecology
DX: O76 Abnormality in fetal heart rate and rhythm complicating labor and delivery (principal); K83.1 Obstruction of bile duct; O26.62 Liver and biliary tract disorders in childbirth; O24.429 Gestational diabetes mellitus in childbirth, unspecified control; E66.01 Morbid (severe) obesity due to excess calories; O99.214 Obesity complicating childbirth; Z37.0 Single live birth; Z3A.37 37 weeks gestation of pregnancy
CPT/HCPCS: 59025; 59050; 80053; 82962; 85025; 85027; 86850; 86900; 86901; 99218; J7030; J7120; A4216; G0378; J2405

== ENCOUNTER 2021-12-31 23:51 | Emergency (ER) | payer OTHER, SELFPAY ==
[2021-12-31 23:54] VITALS: BP 109/71; PULSE 96; RESP 15; TEMP 37.3; O2SAT 98; BMI 38.9
[2021-12-31 23:58] VITALS: BP 109/71; PULSE 96; RESP 15; TEMP 37.3; O2SAT 98
--- NOTE | 2022-01-01 00:18 | EX.ED.DYSGE1 ---
HPI History of Present Illness Chief Complaint: Other, Pain/Inj Informant: patient Narrative Narrative: 41-year-old female states that she is approximately 1 month from a section. She is currently breast-feeding. Beginning on Wednesday she developed bilateral breast pain right greater than left. She states that she talked with the advertising consultant and was recommend that she try an antifungal cream which she has not yet done. She states that tonight she developed fever. She denies any discharge from the breast other than milk. Baby appears well. She denies any problems with her wound but states that while she had a fever her surgical incision seem to hurt more. [facility] Medical History Cholestasis Gestational diabetes Infertility Migraine Home Medications ascorbic acid (vitamin C) 500 mg capsule,extended release 500 mg PO DAILY Check with primary doctor 06/25/20 [History Last Taken 11/20/21 09:00] vits,calcium no.78-iron fumarate-folic acid 29 mg-1 mg tablet 1 tab PO DAILY 06/25/20 [History Last Taken 11/20/21 09:00] propranolol 120 mg capsule,24 hr,extended release 120 mg PO DAILY migraines 06/25/20 [History Last Taken 11/20/21 09:00] aspirin 81 mg capsule 81 mg PO DAILY covid in 11/04/21 [History Last Taken 11/20/21 09:00] cholecalciferol (vitamin D3) 50 mcg (2,000 unit) capsule (Vitamin D3) 50 mcg PO DAILY Check with primary doctor 11/04/21 [History Last Taken 11/20/21 09:00] zinc 50 mg capsule 50 mg PO DAILY Check with primary doctor 11/04/21 [History Last Taken 11/20/21 09:00] oxycodone 5 mg tablet 5 mg PO Q6H PRN PRN Pain Score 7-10 4 days #16 tabs 11/23/21 [Rx Last Taken Unknown] Allergy/AdvReac Type Severity Reaction Status Date / Time No Known Allergies Allergy Verified 12/31/21 23:58 Surgical History History of surgery Social History (Updated 01/01/22 @ 00:[address] Daniel Segundo DO) Smoking Status: Former smoker additional social history: Currently breast-feeding ROS ROS ED Constitutional Constitutional ED: Reports chills and fever(s); Denies weight loss Eyes Eyes: Denies change in vision or diplopia ENT ENT ED: Denies ear pain, rhinorrhea or sore throat Cardiovascular Cardiovascular: Reports other Details: Bilateral breast pain ; Denies chest pain, orthopnea, palpitations or racing heartbeat Respiratory/Chest Respiratory/Chest: Denies cough, dyspnea or orthopnea Gastrointestinal Gastrointestinal: Denies abdominal pain, diarrhea, nausea or vomiting Genitourinary Genitourinary ED: Denies dysuria, hematuria or urinary frequency Musculoskeletal Musculoskeletal: Denies arthralgias or myalgias Integumentary Denies abscess or rash Neurologic Neurologic: Denies headache(s) or weakness Psychiatric Psychiatric: Denies anxiety, depression, suicidal ideation or suicidal thoughts Endocrine Endocrinology: Denies polydipsia, polyphagia or polyuria Allergic/Immunologic Allergic/Immunologic ED: Denies mouth swelling, tongue swelling or urticaria EXAM Physical Exam Const Vital Signs: 12/31/21 23:54 Temperature 99.2 F H Temperature Source Temporal Pulse Rate 96 Respiratory Rate 15 Blood Pressure 109/71 Blood Pressure Mean 83 Pulse Ox 98 Oxygen Delivery Method Room Air Positive well nourished and well developed General Appearance ED: well developed HEENT Reports normocephalic, head/scalp atraumatic and moist mucous membranes Eyes PERRL and EOMs intact bilaterally Neck no lymphadenopathy, supple and no JVD Chest Wall Chest Narrative: The right breast demonstrates erythema of the medial upper quadrant. No nipple discharge. Left breast appears normal. Bilateral tenderness. Resp normal respiratory effort and clear to auscultation bilaterally Cardio regular rate, regular rhythm and no murmurs GI normal to inspection, nondistended, normoactive bowel sounds and non-tender Palpation: soft Back/Spine no CVA tenderness and normal ROM Extremity normal to inspection General Extremety ED: Negative for edema General Extremity: Negative for edema Neuro oriented x3 and CN's II-XII intact bilaterally Sensorium / Orientation: alert Motor Exam: strength 5/5 throughout Psych mental status grossly normal Mood & Affect: Negative for depressed or tearful Skin no rashes or lesions noted and no wounds MDM MDM MDM Narrative Medical decision making narrative: Clinically the patient appears to have mastitis. She will be started on antibiotics. 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 Discharge Plan Triage Chief Complaint: Other, Pain/Inj ED Provider: Daniel Segundo Dx/Rx/DC Orders Prescriptions: No Action ascorbic acid (vitamin C) 500 MG capsule, extended release 500 mg PO DAILY propranolol 120 MG capsule,extended release 24 hr 120 mg PO DAILY vit,[id number] 1 TABLET tablet 1 tab PO DAILY oxycodone 5 mg Tablet 5 mg PO Q6H PRN PRN (Reason: Pain Score 7-10) 4 Days Qty: 16 0RF zinc 50 mg Capsule 50 mg PO DAILY cholecalciferol (vitamin D3) [Vitamin D3] 50 mcg (2,000 unit) Capsule 50 mcg PO DAILY aspirin 81 mg Capsule 81 mg PO DAILY
[2022-01-01] MEDS: Amox/Clavulanate 875 MG Tablet PO (00:27)
== END 2022-01-01 00:49 | disposition home or self-care (01) ==
LOC: ED 01-01 00:38
PROVIDERS: Emergency Provider Emergency Medicine; Visit Provider Emergency Medicine
DX: O91.23 Nonpurulent mastitis associated with lactation (principal); Z87.891 Personal history of nicotine dependence
CPT/HCPCS: 99283

== ENCOUNTER → 2022-01-02 | Outpatient (CLI) | payer OTHER, SELFPAY ==
[2022-01-02 13:22] LABS: ALB/GLOB Ratio 0.9 RATIO (0.9-2.4); AST(SGOT) 32 U/L (15-37); Alanine Aminotransfer ALT/SGPT 56 U/L (13-56); Albumin, Serum 3.5 g/dL (3.2-5.0); Alkaline Phosphatase 118 U/L (45-117); Anion Gap 10 (5-15); BUN 12 mg/dL (7-18); BUN/Creat Ratio 17.9 RATIO (10-20); Calcium,Total 9.3 mg/dL (8.5-10.1); Chloride 107 mmol/L (98-107); Creatinine, Serum 0.67 mg/dL (0.55-1.02); EST Glomerular Filtration Rate 103 mL/min (>60); Est Glom Filt Rate - Afr Amer 124 mL/min (>60); Glucose 94 mg/dL (74-106); Potassium 4.3 mmol/L (3.5-5.1); Protein, Total 7.5 g/dL (6.4-8.2); Sodium Level 139 mmol/L (136-145)
== END | disposition home or self-care (01) ==
LOC: LABSPEC 12:12
PROVIDERS: Visit Provider Obstetrics & Gynecology
DX: O26.619 Liver and biliary tract disorders in pregnancy, unspecified trimester (principal)
CPT/HCPCS: 36415; 80053

== ENCOUNTER → 2022-07-10 | Outpatient (CLI) | payer OTHER, SELFPAY ==
--- NOTE | 2022-07-10 07:05 | BI_ITS ---
MAMMOGRAPHY - BILATERAL SCREENING REASON FOR EXAM: Female, 41 years old. Routine annual screening examination. PERTINENT HISTORY: Non-contributory. TECHNIQUE: Digital bilateral breast leigha (3D mammographic acquisition) in the CC and MLO projections. 2-D mediolateral oblique (MLO) and craniocaudad (CC) views of both breasts were obtained. CAD: Full Field Digital Mammography with Computer Added Detection was performed. COMPARISON: None. Baseline examination. FINDINGS: Breast Composition: There are scattered areas of fibroglandular density. There are no dominant masses or suspicious calcifications. No other significant abnormalities are identified. BI/SCRN MAMM (CAD)W/LEIGHA BILAT IMPRESSION: Negative screening mammogram. Yearly followup mammogram recommended. (A) ASSESSMENT CATEGORY: BIRADS Category 1: Negative. A letter regarding these results will be sent to the patient by the facility within 30 days. Approximately 10% of breast cancers are not detected by mammography. A normal mammogram should not delay biopsy of a clinically suspicious abnormality. [id number] Electronically Signed: Serjio López MD at 8:11 EDT ,
== END | disposition home or self-care (01) ==
LOC: OPBI 07:02
PROVIDERS: Referring Provider Obstetrics & Gynecology; Visit Provider Obstetrics & Gynecology
DX: Z12.31 Encounter for screening mammogram for malignant neoplasm of breast (principal)
CPT/HCPCS: 77063; 77067

== ENCOUNTER 2023-04-06 00:24 | Emergency (ER) | payer OTHER, SELFPAY ==
[2023-04-06 00:25] VITALS: BP 127/70; PULSE 78; RESP 14; TEMP 35.8; O2SAT 98; BMI 39.9
--- NOTE | 2023-04-06 00:43 | EX.ED.VIS.PS ---
HPI HPI - Psych History of Present Illness Chief Complaint: Suicidal Informant: patient Narrative Narrative: Patient presents with [facility] deputies for voluntary psychiatric evaluation. Patient states she and her got into an argument tonight. She was trying to leave the home and he would not let her leave. She called the cottage master's office because she was being held against her will. With discussions it was determined patient really did not care whether she lived or . She states she is not actively suicidal and does not have any plan to hurt herself, but does not really care if she lives or dies. She has had these thoughts intermittently throughout her adult life. She has been seen by psychiatrist/psychologist on a few occasions when she was in college. She has never been on any antidepressants or any regular therapy or counseling. Patient does have a [id number] child at home who she states is safe. She is currently on Clomid trying to conceive. [facility] Medical History Cholestasis Gestational diabetes Infertility Migraine Home Medications ascorbic acid (vitamin C) 500 mg capsule,extended release 500 mg PO DAILY Check with primary doctor 06/25/20 [History Last Taken 11/20/21 09:00] vits,calcium no.78-iron fumarate-folic acid 29 mg-1 mg tablet 1 tab PO DAILY 06/25/20 [History Last Taken 11/20/21 09:00] propranolol 120 mg capsule,24 hr,extended release 120 mg PO DAILY migraines 06/25/20 [History Last Taken 11/20/21 09:00] cholecalciferol (vitamin D3) 50 mcg (2,000 unit) capsule (Vitamin D3) 50 mcg PO DAILY Check with primary doctor 11/04/21 [History Last Taken 11/20/21 09:00] benzonatate 200 mg capsule 200 mg PO TID PRN 04/06/23 [History Last Taken Unknown] rizatriptan 10 mg disintegrating tablet 10 mg PO DAILY PRN 04/06/23 [History Last Taken Unknown] Allergy/AdvReac Type Severity Reaction Status Date / Time No Known Allergies Allergy Verified 04/06/23 00:31 Surgical History History of surgery Social History Smoking Status: Former smoker additional social history: Currently breast-feeding ROS ROS ED Constitutional Constitutional ED: Denies chills or fever(s) Eyes Eyes: Denies discharge from eye(s) ENT ENT ED: Denies discharge from eye(s), rhinorrhea or sore throat Cardiovascular Cardiovascular: Denies chest pain or palpitations Respiratory/Chest Respiratory/Chest: Denies cough or dyspnea Gastrointestinal Gastrointestinal: Denies abdominal pain, nausea or vomiting Genitourinary Genitourinary ED: Denies dysuria Musculoskeletal Musculoskeletal: Denies back pain or extremity pain Integumentary Denies Abrasions or rash Neurologic Neurologic: Denies headache(s) or weakness Psychiatric Psychiatric: Reports anxiety, depression and suicidal ideation Allergic/Immunologic Allergic/Immunologic ED: Denies lip swelling or urticaria EXAM Physical Exam Const Vital Signs: 04/06/23 00:25 04/06/23 01:24 Temperature 96.5 F L Temperature Source Temporal Pulse Rate 78 72 Respiratory Rate 14 16 Blood Pressure 127/70 H Blood Pressure Mean 89 Pulse Ox 98 99 Oxygen Delivery Method Room Air Room Air Positive well nourished and well developed General Appearance ED: well developed HEENT Reports moist mucous membranes Eyes EOMs intact bilaterally Resp normal respiratory effort and clear to auscultation bilaterally Cardio S1 normal heart sound and S2 normal heart sound GI non-tender Palpation: soft Extremity normal to inspection Neuro oriented x3 and no sensory deficits noted Motor Exam: strength 5/5 throughout Psych cooperative Appearance: grossly normal Attitude: calm Activity / Motor Behavior: appropriate eye contact Speech: normal speech Mood & Affect: depressed, anxious, sad and tearful MDM MDM MDM Narrative Medical decision making narrative: Lab work for psychiatric clearance obtained. Lab Data Attestation: I reviewed the patient's lab results. Labs: Laboratory Results - last 24 hr 04/06/23 04/06/23 01:15 01:54 WBC 14.4 H RBC 4.65 Hgb 13.6 Hct 42.4 MCV 91.2 MCH 29.2 MCHC 32.1 RDW Std Deviation 41.1 RDW Coeff of Mary Anne 12.5 Plt Count 325 MPV 10.1 Immature Gran % (Auto) 0.500 Neut % (Auto) 62.9 Lymph % (Auto) 28.6 Robeson % (Auto) 6.5 Eos % (Auto) 1.0 Baso % (Auto) 0.5 Absolute Neuts (auto) 9.1 H Absolute Lymphs (auto) 4.12 Nucleated RBC % 0 Sodium 138 Potassium 3.4 L Chloride 105 Carbon Dioxide 28.0 Anion Gap 5 BUN 16 Creatinine 0.76 Estim Creat Clear Calc 79.77 Est GFR (MDRD) Af Amer 107 Est GFR (MDRD) Non-Af 88 BUN/Creatinine Ratio 21.0 H Glucose 116 H Calcium 9.5 Serum , Qual NEGATIVE Urine Opiates Screen NEGATIVE Urine Methadone Screen NEGATIVE Ur Barbiturates Screen NEGATIVE Ur Phencyclidine Scrn NEGATIVE Ur Amphetamines Screen NEGATIVE MDMA (Ecstasy) Screen NEGATIVE U Benzodiazepines Scrn NEGATIVE Urine Cocaine Screen NEGATIVE U Cannabinoids Screen NEGATIVE Ur Drug Screen Comment Ethyl Alcohol < 3.0 Treatment and Re-Evaluation Narrative: White count is elevated at 14.4 with unremarkable differential. Patient states she is currently on antibiotic for sinusitis. Chemistry studies significantly for slightly potassium at 3.4. Renal function is normal. test negative. EtOH and tox screens are negative. Staff and counseling center presented to the emergency room and evaluate the patient. She and myself are both comfortable with a safety plan and close follow-up. Patient is given resources for follow-up and counseling. Return instructions are given. Discharge Plan Triage Chief Complaint: Suicidal ED Provider: Imelda Montana Dx/Rx/DC Orders Clinical Impression: Anxiety and depression Instructions: Depression: Tips to Help Yourself, ED Anxiety Reaction Prescriptions: No Action ascorbic acid (vitamin C) 500 MG capsule, extended release 500 mg PO DAILY propranolol 120 MG capsule,extended release 24 hr 120 mg PO DAILY vit,[id number] 1 TABLET tablet 1 tab PO DAILY cholecalciferol (vitamin D3) [Vitamin D3] 50 mcg (2,000 unit) Capsule 50 mcg PO DAILY benzonatate 200 mg capsule 200 mg PO TID PRN Patient Comments: take 1 capsule by mouth three times a day if needed rizatriptan 10 mg tablet,disintegrating 10 mg PO DAILY PRN Primary Care Provider: CHRISTINE OCHOA Referrals: Counseling,Center [Group of Physicians] - As soon as possible [facility],Out of [Non-Staff] - Disposition Disposition: Home, Self Care
--- NOTE | 2023-04-06 00:47 | ED.RN ---
Per Dr Montana patient does not require a sitter.
[2023-04-06 01:24] VITALS: PULSE 72; RESP 16; O2SAT 99
[2023-04-06 01:27] LABS: Absolute Lymphocyte Count 4.12 X10^3/uL (0.83-4.51); Absolute Neutrophil Count 9.1 X10^3/uL (2.0-7.7); Basophil# 0.07 X10^3/uL; Basophil% 0.5 % (0-1); Eosinophil# 0.14 X10^3/uL; Hematocrit 42.4 % (37-47); Hemoglobin 13.6 g/dL (12.0-15.0); Lymphocyte # 4.12 X10^3/ul (0.83-4.51); Lymphocyte % 28.6 % (19-41); Mean Corp Hgb Conc 32.1 g/dL (32-36); Mean Corpuscular Hgb 29.2 pg (27.0-32.0); Mean Corpuscular Volume 91.2 fL (81-99); Mean Platelet Vol. 10.1 fl (6.2-12.0); Monocyte# 0.94 X10^3/uL; Monocyte% 6.5 % (0-10); NRBC Flagged by Analyzer 0 % (0-5); Neutrophil # 9.08 X10^3/uL (2.7-7.7); Neutrophil % 62.9 % (47-70); Platelet Count 325 K/mm3 (150-450); RBC Distribution Width CV 12.5 % (11.6-14.6); RBC Distribution Width SD 41.1 fl (35.1-43.9); Red Blood Count 4.65 M/mm3 (4.2-5.4); White Blood Count 14.4 K/mm3 (4.4-11.0)
[2023-04-06 01:36] LABS: Internal QC Validated? YES +Cl - CLEAR BKGD; Pregnancy, Serum, hCG Quali. NEGATIVE Negative
[2023-04-06 01:41] LABS: Alcohol, Blood (Medical)-Serum < 3.0 mg/dL
[2023-04-06 01:42] LABS: Anion Gap 5 (5-15); BUN 16 mg/dL (7-18); Calcium,Total 9.5 mg/dL (8.5-10.1); Chloride 105 mmol/L (98-107); Creatinine, Serum 0.76 mg/dL (0.55-1.02); EST Glomerular Filtration Rate 88 mL/min (>60); Est Glom Filt Rate - Afr Amer 107 mL/min (>60); Estimated Creatinine Clearance 79.77 ml/min; Glucose 116 mg/dL (74-106); Potassium 3.4 mmol/L (3.5-5.1); Sodium Level 138 mmol/L (136-145)
[2023-04-06 02:17] LABS: Amphetamine Urine VISTA NEGATIVE (<1000 ng/mL); Barbiturate Urine VISTA NEGATIVE (< 200 ng/mL); Benzodiazepine Urine VISTA NEGATIVE (< 200 ng/mL); Cocaine Urine VISTA NEGATIVE (< 300 ng/mL); Ecstacy Urine VISTA NEGATIVE (< 500 ng/mL); Methadone Urine VISTA NEGATIVE (< 300 ng/mL); PCP Urine VISTA NEGATIVE (< 25 ng/mL); THC Urine VISTA NEGATIVE (< 50 ng/mL); Vista UDS pH Range 6
--- NOTE | 2023-04-06 02:24 | NURSING ---
CALLED CRISIS AT [phone] AND FAXED CHART
[2023-04-06 03:16] VITALS: PULSE 72; RESP 16; O2SAT 98
== END 2023-04-06 03:18 | disposition home or self-care (01) ==
PROVIDERS: Emergency Provider Emergency Medicine; Visit Provider Emergency Medicine
DX: F41.9 Anxiety disorder, unspecified (principal); F32.A Depression, unspecified; N97.9 Female infertility, unspecified; Z79.899 Other long term (current) drug therapy; Z87.891 Personal history of nicotine dependence
CPT/HCPCS: 80048; 80307; 82077; 84703; 85025; 99282

== ENCOUNTER → 2023-09-22 | Outpatient (CLI) | payer OTHER, SELFPAY ==
--- NOTE | 2023-09-22 08:23 | BI_ITS ---
MAMMOGRAPHY - BILATERAL SCREENING REASON FOR EXAM: Female, 42 years old. Routine annual screening examination. PERTINENT HISTORY: Non-contributory. TECHNIQUE: Digital bilateral breast leigha (3D mammographic acquisition) in the CC and MLO projections. 2-D mediolateral oblique (MLO) and craniocaudad (CC) views of both breasts were obtained. CAD: Full Field Digital Mammography with Computer Added Detection was performed. COMPARISON: Comparison is made with prior study dated July 10, 2022. FINDINGS: Breast Composition: There are scattered areas of fibroglandular density. There are no dominant masses or suspicious calcifications. No other significant abnormalities are identified. There has been no significant change since the prior study. BI/SCRN MAMM (CAD)W/LEIGHA BILAT IMPRESSION: Stable bilateral screening mammogram. Yearly follow-up mammogram recommended. (A) ASSESSMENT CATEGORY: BIRADS Category 1: Negative. A letter regarding these results will be sent to the patient by the facility within 30 days. Approximately 10% of breast cancers are not detected by mammography. A normal mammogram should not delay biopsy of a clinically suspicious abnormality. [id number] Electronically Signed: Serjio López MD at 9:38 EDT ,
== END | disposition home or self-care (01) ==
LOC: OPBI 08:20
DX: Z12.31 Encounter for screening mammogram for malignant neoplasm of breast (principal)
CPT/HCPCS: 77063; 77067

== ENCOUNTER → 2024-09-22 | Outpatient (CLI) | payer OTHER, SELFPAY ==
--- NOTE | 2024-09-22 15:32 | BI_ITS ---
EXAM: SCRN MAMM (CAD)W/LEIGHA BILAT DATE: 09/22/2024 CLINICAL HISTORY: F, Age 43 y/o , SCREENING FOR BREAST CANCER No family history. BREAST CANCER RISK ASSESSMENT: Not assessed TECHNIQUE: Bilateral screening digital breast tomosynthesis with 2D and 3D images. Computer aided detection. COMPARISON: Prior exam(s) dated September 22, 2023. FINDINGS: TISSUE DENSITY: The breast tissue is composed of scattered area of fibroglandular density. Bilateral Breast Mammographic Findings: No significant masses, calcifications or other abnormalities are identified. No suspicious masses, areas of developing architectural distortion, or suspicious calcifications. There has been no significant interval change. BI/SCRN MAMM (CAD)W/LEIGHA BILAT IMPRESSION: OVERALL FINAL ASSESSMENT: BIRADS 1 NEGATIVE RECOMMENDATION: Routine annual follow-up in 1 Year A letter with findings and recommendations will be mailed to the patient. Reading Location: [place] [id number]
== END | disposition home or self-care (01) ==
LOC: OPBI 15:31
PROVIDERS: PCP Internal Medicine; Referring Provider Nurse Practitioner Family; Visit Provider Nurse Practitioner Family
DX: Z12.31 Encounter for screening mammogram for malignant neoplasm of breast (principal)
CPT/HCPCS: 77063; 77067